=== PATIENT | male | born 1970 | race Two or more races ===

== ENCOUNTER 2022-08-02 07:50 | Outpatient (CLI) | payer OTHER | END 2022-08-02 07:59 | disposition home or self-care (01) | LOC: RAD 07:50 | DX: M54.89 Other dorsalgia (principal); R10.84 Generalized abdominal pain ==

== ENCOUNTER 2022-08-02 09:46 | Outpatient (CLI) | payer OTHER | END 2022-08-02 14:57 | disposition home or self-care (01) | LOC: LAB 09:46 | DX: R10.84 Generalized abdominal pain (principal); R35.0 Frequency of micturition; Z13.0 Encounter for screening for diseases of the blood and blood-forming organs and certain disorders involving the immune mechanism; Z13.228 Encounter for screening for other metabolic disorders ==